=== PATIENT | female | born 1955 | race Caucasian/White ===

== ENCOUNTER 2017-08-16 21:13 | Inpatient (IN) | payer OTHER ==
[~2017-08-16] VITALS: Ht 160 cm; Wt 82.4 kg
[~2017-08-16 21:13] MED LIST: ACID REDUCER 1150 MG PO; CYMBALTA60 MG PO; FOLGARD1 TABLET PO; GLYCOTROL CAPS1 EACH PO; MS CONTIN,ORAMO15 M1 PO; PRAVACHOL20 MG PO; TRAZODONE HCL50 MG PO; WELLBUTRIN XL300 MG PO
[2017-09-09] MEDS ORDERED: VITAMIN D32000 UNI1 PO (14:33)
[2017-09-09] MEDS ORDERED: CYANOCOBALAM1000 MCG PO (14:34)
[2017-09-09] MEDS ORDERED: COENZYME Q10100 M2 PO (14:35)
[2017-09-09] MEDS ORDERED: FLONASE16 G1 BOTH NARES (14:37)
[2017-09-09] MEDS ORDERED: PROAIR HFA8.5 GM IH (14:38)
[2017-09-09] MEDS ORDERED: TURMERIC500 M2 PO (14:39)
[2017-09-09] MEDS ORDERED: ADVIL,NUPRIN,M200 MG PO (14:42)
[2017-09-14 09:43] VITALS: BP 151/84
[2017-09-14 10:01] VITALS: BP 151/84
[2017-09-14 14:11] LABS: HEMATOCRIT 37.2 % (36.0-46.0); HEMOGLOBIN 11.9 G/DL (11.9-15.5); MCV 90.7 FL (83-99); PLATELET COUNT 279 K/uL (156-360); RBC DIS.WIDTH-CV 13.1 % (11.8-14.6); WHITE BLOOD COUNT 7.7 K/uL (4.1-10.2)
[2017-09-14 15:14] VITALS: BP 122/73
[2017-09-14 20:09] VITALS: BP 122/59
[2017-09-15 00:06] VITALS: BP 119/60
[2017-09-15 04:15] VITALS: BP 113/51
[2017-09-15 06:46] LABS: CHLORIDE 105 MEQ/L (99-109); CREATININE 0.8 MG/DL (0.6-1.3); GFR ESTIMATE (CALCULATED) > 59 mL/min/; GLUCOSE 125 mg/dL (70-99); POTASSIUM 3.8 MEQ/L (3.7-5.4); SODIUM 136 MEQ/L (136-147); UREA NITROGEN (BUN) 12 mg/dL (9-23)
[2017-09-15 08:16] VITALS: BP 113/58
[2017-09-15 12:17] VITALS: BP 122/58
[2017-09-15 13:32] LABS: HEMATOCRIT 33.1 % (36.0-46.0); HEMOGLOBIN 10.8 G/DL (11.9-15.5); MCV 90.9 FL (83-99)
[2017-09-15 16:03] VITALS: BP 100/55
[2017-09-15 20:29] VITALS: BP 113/54
[2017-09-16] VITALS: BP 112/56
[2017-09-16 04:25] VITALS: BP 109/53
[2017-09-16 08:00] VITALS: BP 119/55
[2017-09-16] MEDS ORDERED: LOVENOX40 MG/0.4 SC (09:02)
[2017-09-16] MEDS ORDERED: SENNA PLUS TAB1 EACH PO (09:02)
[2017-09-16] MEDS ORDERED: ENDOCET 5-3251 EACH PO (09:02)
[2017-09-16 12:00] VITALS: BP 116/55
== END 2017-09-16 15:40 | disposition home health service (06) | DRG 470 ==
LOC: 2SOUTH → CANRESERV 21:13 → ENRESERV 21:13 → 2SOUTH 08-17 10:08 → ENRESERV 09-13 21:01 → 2SOUTH 09-14 09:21 → 3WEST 09-14 14:52
PROVIDERS: Orthopaedic Surgery
PROC: 0SR90JZ Replacement of Right Hip Joint with Synthetic Substitute, Open Approach (ICD-10-PCS; principal; 2017-09-14)
DX: M16.11 Unilateral primary osteoarthritis, right hip (principal); J44.9 Chronic obstructive pulmonary disease, unspecified; G43.909 Migraine, unspecified, not intractable, without status migrainosus; K21.9 Gastro-esophageal reflux disease without esophagitis; E66.9 Obesity, unspecified; Z68.32 Body mass index [BMI] 32.0-32.9, adult; G89.29 Other chronic pain; M54.9 Dorsalgia, unspecified; F32.9 Major depressive disorder, single episode, unspecified; Z85.118 Personal history of other malignant neoplasm of bronchus and lung; Z90.2 Acquired absence of lung [part of]; Z87.891 Personal history of nicotine dependence; Z80.1 Family history of malignant neoplasm of trachea, bronchus and lung; Z79.891 Long term (current) use of opiate analgesic
CPT/HCPCS: 73501; 80048; 85014; 85018; 85027; 97530 GO; J0131; J0690; J1170; J1650; J1885; J2405; J7030; J7050